=== PATIENT | female | born 1970 | race Hispanic/Latino ===

== ENCOUNTER 2020-11-30 00:10 | Emergency (ER) | payer BC ==
[~2020-11-30] VITALS: Ht 165.1 cm; Wt 87.5 kg
[2020-11-30] MEDS ORDERED: ONDANSETRON 4MG INJ IVP ONE (00:30)
[2020-11-30 00:56] LABS: HEMATOCRIT 38.7 % (36-48); MEAN CORPUSCULAR HEMOGLOBIN 29.3 pg (27.0-33.0); MEAN CORPUSCULAR HGB CONC 33.3 g/dL (32.0-36.0); RED BLOOD CELL COUNT(AUTO) 4.4 MIL/uL (4.00-5.50); RED CELL DISTRIBUTION WIDTH 13.6 % (11.0-15.5); WHITE BLOOD COUNT (AUTO) 10.5 K/uL (4.8-10.8)
[2020-11-30 00:59] LABS: APPEARANCE,URINE Clear (CLEAR); BILIRUBIN,URINE Negative (NEGATIVE); COLOR,URINE Yellow (YELLOW); GLUCOSE, URINE (UA) Negative (NEGATIVE); KETONES,URINE Negative (NEGATIVE); LEUKOCYTE ESTERASE ,URINE Negative (NEGATIVE); NITRATE,URINE Negative (NEGATIVE); OCCULT BLOOD,URINE Trace (NEGATIVE); PROTEIN,URINE Negative (NEGATIVE)
[2020-11-30] MEDS ORDERED: METOCLOPRAMIDE 10 MG/2 ML VIAL IVP ONE (01:00)
[2020-11-30] MEDS ORDERED: 0.9%NACL 1000ML 1,000 ML IV ONE (01:00)
[2020-11-30 01:07] LABS: CARBON DIOXIDE 28 mmol/L (21-32); CHLORIDE 107 mmol/L (101-111); CREATININE 0.7 mg/dL (0.5-1.5); GLOMERULAR FILTR. RATE CALC 93 mL/min (>60); GLUCOSE,RANDOM 139 mg/dL (70-105); POTASSIUM 3.6 mmol/L (3.5-5.1); SODIUM SERUM 141 mmol/L (136-145); UREA NITROGEN, BLOOD 10 mg/dL (7-18)
[2020-11-30 01:08] LABS: BACTERIA,URINE None Seen /HPF (None Seen); SQUAMOUS EPITHELIAL CELL,UR Moderate /HPF (0-2)
[2020-11-30 01:09] LABS: MUCUS,URINE Few LPF (None Seen); WBC,URINE 0-1 /HPF (0-1)
[2020-11-30 01:11] LABS: ALANINE AMINOTRANSFERASE 191 U/L (12-78); ALBUMIN 3.8 g/dL (3.5-5.0); ASPARTATE AMINOTRANSFERASE 290 U/L (10-37); BILIRUBIN,TOTAL 0.4 mg/dL (0.2-1.0); TOTAL PROTEIN, SERUM 8.3 g/dL (6.0-8.3)
[2020-11-30 01:21] LABS: LIPASE < 50 U/L (114-286)
[2020-11-30 01:26] VITALS: BP 147/81
[2020-11-30] MEDS ORDERED: METO-296 PO (01:52)
[2020-11-30] MEDS ORDERED: ONDA4TAB10 PO (01:52)
== END 2020-11-30 02:11 | disposition home or self-care (01) ==
LOC: EDH 01:08
DX: E86.0 Dehydration (principal); R11.2 Nausea with vomiting, unspecified; G89.29 Other chronic pain; M79.672 Pain in left foot; Z79.899 Other long term (current) drug therapy
CPT/HCPCS: 36415; 80053; 81001; 83690; 84484; 85027; 93005; 96361; 96374; 96375; 99284; J2405; J2765; J7030